=== PATIENT | female | born 1980 | race Caucasian/White ===

== ENCOUNTER 2021-02-01 10:52 | Outpatient (CLI) | payer OTHER, SELFPAY ==
[2021-02-01 13:04] LABS: Influenza A QL RT-PCR Negative (Negative); Influenza B QL RT-PCR Negative (Negative); SARS-CoV-2 RNA PCR Positive (Negative)
== END 2021-02-01 10:53 | disposition home or self-care (01) ==
PROVIDERS: PCP Internal Medicine; Visit Provider Nurse Practitioner Family
DX: U07.1 COVID-19 (principal); J06.9 Acute upper respiratory infection, unspecified; R50.9 Fever, unspecified
CPT/HCPCS: 87502; C9803; U0003; U0005

== ENCOUNTER 2022-01-15 06:38 | Emergency (ER) | payer OTHER, SELFPAY ==
[2022-01-15 06:58] VITALS: BP 128/72; PULSE 92; RESP 20; TEMP 37; O2SAT 96
--- NOTE | 2022-01-15 07:40 | ED.BACK ---
HPI - Back Pain/Injury General Chief Complaint: Back Pain/Injury Stated Complaint: Back leg pain Time Seen by Provider: 01/15/22 07:10 Source: patient and RN notes reviewed Mode of arrival: ambulatory Limitations: no limitations History of Present Illness MD elicited complaint: back pain (like sciatica as before. no acute injury. ) Pertinent past history: prior back pain Onset (ago): day(s) (2) Timing: constant Severity: moderate Pain scale (0-10): 8 Similar Symptoms Previously: Yes Quality: dull, aching and spasming Location: lumbar spine Radiation: other (both lower limbs.) Exacerbating factors: movement Relieving factors: immobilization Context: other (2 long car rides in 3 days.) Associated symptoms: denies other symptoms Treatments prior to arrival: NSAIDS and acetaminophen Work related injury: No Related Data Allergies Allergy/AdvReac Type Severity Reaction Status Date / Time metoclopramide AdvReac Unknown PARALYSIS Verified 01/09/17 11:08 SENSATION NECK AND FACE Review of Systems Review of Systems: All systems reviewed & are unremarkable except as noted in HPI and below Constitutional: Constitutional: Reports no additional constitutional complaints Eyes: Eyes: Reports no additional eye complaints ENT: Reports system reviewed and no additional complaints, except as documented Cardiovascular: Cardiovascular: Reports no additional cardiovascular complaints Respiratory: Respiratory: Reports no additional respiratory complaints Gastrointestinal: Gastrointestinal: Reports no additional gastrointestinal complaints Genitourinary: Genitourinary: Reports no additional female genitourinary complaints Musculoskeletal: Musculoskeletal: Reports no additional musculoskeletal complaints and Reports back pain Integumentary/Breasts: Skin/Breast: Reports system reviewed and no additional complaints, except as docu Neurologic: Reports system reviewed and no additional complaints, except as documented Psychiatric: Psychiatric: Reports no additional psychiatric complaints Endocrine: Endocrine: Reports no additional endocrine complaints Hematologic/Lymphatic: Hematologic/Lymphatic: Reports no additional hematologic/lymphatic complaints Allergic/Immunologic: Allergic/Immunologic: Reports no additional allergic/immunologic complaints PMFSH Past Medical History Medical History Sciatica Exam Const: General: healthy appearing, no acute distress and well nourished Nutritional Appearance: well nourished Orientation/consciousness: patient oriented x3 Limitations: no limitations HENMT: Head: normal to inspection Ears: external ears normal, TM's normal bilaterally and EAC's normal Face/Nose/Sinus: Normal external nose present, Normal nares present, normal facial exam and sinuses nontender Face and sinus: normal facial exam and sinuses nontender Mouth: Yes Normal oral and palatal mucosa present and Yes moist mucous membranes Teeth and gingiva: dentition normal Throat: posterior oropharynx normal Eyes: Conjunctivae: conjunctivae normal Pupils: Equal, round and reactive pupils present EOM: EOMs intact bilaterally Neck: Neck: normal visual inspection, no lymphadenopathy and no meningeal signs Chest: Chest palpation & inspection: normal inspection of the chest Resp: Effort & Inspection: normal respiratory effort Auscultation: clear to auscultation bilaterally Cardio: Rate: regular rate Rhythm: regular rhythm GI: GI Palp: Yes Soft to palpation and No Tenderness to palpation present (GI) Auscultation: normal bowel sounds : General: Yes bladder normal to palpation and Yes no CVA tenderness Bimanual exam- vagina & uterus: bladder normal to palpation Back/Spine/Pelvis: Back: no CVA tenderness Other: minimal paraspinal tenderness of lumbo-sacral back. no acute redness, swelling or deformity. non-focal. Skin: General skin exam: normal c
[2022-01-15] MEDS: KETOROLAC 30 MG/ML VIAL (*BKC) IM (07:53)
== END 2022-01-15 08:19 | disposition home or self-care (01) ==
PROVIDERS: Emergency Provider Emergency Medicine; PCP Internal Medicine
DX: M54.30 Sciatica, unspecified side (principal)
CPT/HCPCS: 96372; 99283; J1885

== ENCOUNTER 2023-12-04 05:58 | Day surgery (SDC) | payer OTHER, SELFPAY ==
[2023-09-07 11:54] VITALS: BMI 24.1
[2023-11-21 13:08] VITALS: BMI 24.9
[2023-12-04 06:34] VITALS: BP 104/74; PULSE 71; RESP 16; TEMP 37.2; O2SAT 98
[2023-12-04] MEDS: LACTATED RINGERS 1,000 ML 150 ML IV CONT (06:34)
--- NOTE | 2023-12-04 06:47 | WPDANESEPPF ---
Anes - Initial Pre Proc Eval Procedure: Operation Date: 12/04/23 07:30 Proposed Procedures p Screening Colonoscopy - Jan Zhang DO Date/Time: 12/04/23 06:47 Surgeon: Jan Zhang DO Pre Op Diagnosis: Family History of Colon Cancer Patient Data Age: 43 Gender: F Height: 1.6 m Weight: 62.55 kg Last Vital Signs Temp 37.2 C 12/04/23 06:34 Pulse 71 12/04/23 06:34 Resp 16 12/04/23 06:34 BP 104/74 12/04/23 06:34 Pulse Ox 98 12/04/23 06:34 O2 Del Method Room Air 12/04/23 06:34 Allergies Allergy/AdvReac Type Severity Reaction Status Date / Time metoclopramide AdvReac Unknown PARALYSIS Verified 12/04/23 06:35 SENSATION NECK AND FACE Home Medications Medication Instructions Recorded Confirmed Type multivitamin with minerals-folic 1 tablet PO DAILY 11/21/23 12/04/23 History acid 0.4 mg tablet Patient hx anesthesia problems: none Family hx anesthesia problems: none Results Review: All pre-operative results and documents have been reviewed as part of the pre-operative evaluation. [facility] Past Medical History Medical History Sciatica Social History Social History Smoking status: Former smoker Tobacco type: cigarettes Alcohol intake: current Alcohol use details: 6 per month Substance use type: does not use Living arrangements: with family Spiritual care concerns: No Anes - Eval Final PreProcedure Day of Procedure 12/04/23 06:47 Patient weight: normal Heart: regular rate and rhythm Lungs: clear to auscultation and normal air movement Airway: Mallampati scale class II Neurological: alert and oriented Last oral intake: >/= 8 hours ASA classification: II Emergent: no Anesthetic plan: proceed Anesthesia type and monitoring: general GIVS and standard monitoring Results Review: All pre-operative results and documents have been reviewed as part of the pre-operative evaluation. Informed Consent: The patient's anesthetic plan and its attendant risks and benefits were discussed with the patient/family/POA. Questions were solicited and answers provided to the satisfaction of the patient/family/POA.
--- NOTE | 2023-12-04 07:19 | PM.IMHP ---
H&P: HPI History of Present Illness Date/Time: 12/04/23 07:19 Chief Complaint: Fam hx colon cancer Narrative: 43 yo woman presents for her first colonoscopy. Her father had colon cancer in her 60s. She denies any hematochezia or melena. Review of Systems Review of Systems: All systems reviewed & are unremarkable except as noted in HPI and below Constitutional: Constitutional: Denies chills, Denies fever(s), Denies headache(s) and Denies weight loss Eyes: Eyes: Denies change in vision ENT: Denies dizziness, Denies headache(s), Denies neck mass and Denies throat swelling Cardiovascular: Cardiovascular: Denies chest pain, Denies lightheadedness and Denies dyspnea Respiratory: Respiratory: Denies cough, Denies dyspnea and Denies wheezing Gastrointestinal: Gastrointestinal: Denies abdominal pain, Denies change in bowel habits, Denies nausea and Denies vomiting Genitourinary: Genitourinary: Denies hematuria and Denies dysuria Musculoskeletal: Musculoskeletal: Reports as per HPI Integumentary/Breasts: Skin/Breast: Reports as per HPI Neurologic: Denies dizziness and Denies headache(s) Allergic/Immunologic: Allergic/Immunologic: Denies throat swelling and Denies wheezing PMFSH Past Medical History Medical History Sciatica Social History Social History Smoking status: Former smoker Tobacco type: cigarettes Alcohol intake: current Alcohol use details: 6 per month Substance use type: does not use Living arrangements: with family Spiritual care concerns: No Meds Home Medications and Allergies Home Medications Medication Instructions Recorded Confirmed Type multivitamin with minerals-folic 1 tablet PO DAILY 11/21/23 12/04/23 History acid 0.4 mg tablet Allergies Allergy/AdvReac Type Severity Reaction Status Date / Time metoclopramide AdvReac Unknown PARALYSIS Verified 12/04/23 06:35 SENSATION NECK AND FACE Vital Signs Vital Signs - 24 hr 12/04/23 06:34 Temperature 98.9 F Pulse Rate 71 Respiratory Rate 16 Blood Pressure 104/74 Pulse Oximetry 98 Oxygen Delivery Room Air Exam Const: General: no acute distress and alert Orientation/consciousness: patient oriented x3 HENMT: Head: normocephalic and atraumatic Ears: hearing grossly normal bilaterally Face/Nose/Sinus: Normal nares present Mouth: Yes Normal oral and palatal mucosa present Eyes: Periorbital: periorbital findings normal Sclera: sclerae normal EOM: EOMs intact bilaterally Neck: Neck: normal visual inspection, no lymphadenopathy and trachea midline Chest: Chest palpation & inspection: normal inspection of the chest Resp: Effort & Inspection: normal respiratory effort Auscultation: clear to auscultation bilaterally Cardio: Jugular venous distension: no JVD Rate: regular rate Rhythm: regular rhythm Heart sounds: S1 normal heart sound present and S2 normal heart sound present Peripheral pulses: Peripheral pulses 2+ throughout GI: Inspection: normal to inspection GI Palp: Yes Soft to palpation, No Tenderness to palpation present (GI), No Guarding due to palpation present (GI) and No Rebound tenderness present Percussion: Yes normal to percussion Auscultation: normal bowel sounds : General: Yes no CVA tenderness Back/Spine/Pelvis: Back: no CVA tenderness Neuro: General: patient oriented x3, no focal motor deficits and CN's II-XI intact bilaterally Cognition (Neuro): normal cognition Speech: normal speech Motor exam (neuro): 5/5 motor strength present throughout Extrem: General: capillary refill normal and no clubbing, cyanosis or edema Assessment and Plan Assessment and plan (1) Family hx of colon cancer: Code(s): Z80.0 - Family history of malignant neoplasm of digestive organs Status: Acute Assessment and Plan: I have recommended colono
[2023-12-04 07:53] VITALS: BP 100/67; PULSE 80; RESP 18; O2SAT 98
[2023-12-04 08:03] VITALS: BP 121/63; PULSE 85; RESP 18; O2SAT 100
[2023-12-04 08:13] VITALS: BP 112/70; PULSE 70; RESP 14; O2SAT 100
--- NOTE | 2023-12-04 11:28 | WPDANESPN ---
Anes - Prog Note Post-Op Date/Time: 12/04/23 11:28 Cardiovascular status: normal Respiratory status: normal Airway patency: baseline Mental status: baseline Post-Op hydration status: normal Vital Signs: Last Vital Signs Temp 37.2 C 12/04/23 06:34 Pulse 70 12/04/23 08:13 Resp 14 12/04/23 08:13 BP 112/70 12/04/23 08:13 Pulse Ox 100 12/04/23 08:13 O2 Del Method Room Air 12/04/23 08:13 Pain Score (VAS): 0 I/O: Intake & Output 12/03/23 12/04/23 12/04/23 23:59 07:59 15:59 Intake Total 600 100 Balance 600 100 Post-procedural complaints: none Patient Feedback: Patient satisfied with anesthetic care. Other Findings: Patient vital signs back to baseline. Patient denies nausea and vomiting. Patient's pain under control. Patient OK for discharge.
== END 2023-12-04 08:46 | disposition home or self-care (01) ==
PROVIDERS: PCP Internal Medicine; Visit Provider Surgery
PROC: 0DJD8ZZ Inspection of Lower Intestinal Tract, Via Natural or Artificial Opening Endoscopic (ICD-10-PCS; CPT 45378; principal; 2023-12-04 07:30)
DX: Z80.0 Family history of malignant neoplasm of digestive organs (principal)
CPT/HCPCS: 45378